=== PATIENT | male | born 1990 | race Two or more races ===

== ENCOUNTER 2018-10-20 23:16 | Emergency (ER) | payer OTHER ==
[~2018-10-20] VITALS: Ht 182.9 cm; Wt 82.0 kg
[2018-10-21] MEDS ORDERED: KETOROLAC 30MG/ML VIAL IV STA (03:53)
[2018-10-21] MEDS ORDERED: SODIUM CHLORIDE 0.9% 1,000 ML IV ONE (03:53)
[2018-10-21] MEDS ORDERED: DEXAMETHASONE 10 MG/ML VIAL IV ONE (04:00)
[2018-10-21] MEDS ORDERED: PENICILLIN G BENZATHINE 1,200,000 UNITS/2ML SYR IM ONE (04:00)
[2018-10-21 04:16] LABS: BASOPHILS % 0.9 % (0.0-2.0); EOSINOPHILS % 3.1 % (0.0-5.0); HEMATOCRIT. 41.3 % (42.0-52.0); HEMOGLOBIN. 12.8 g/dL (14.0-18.0); LYMPHOCYTES % 13.4 % (20.0-50.0); MEAN CORPUSCULAR HEMOGLOBIN 20.4 pg (28.0-32.0); MEAN CORPUSCULAR VOLUME 65.5 fL (80.0-94.0); MEAN PLATELET VOLUME 8.5 fl (7.4-10.4); MONOCYTES % 8.8 % (2.0-8.0); NEUTROPHILS % 73.8 % (40.0-76.0); PLATELET 193 x1000/uL (130-400); RED BLOOD CELL COUNT 6.31 mill/uL (4.7-6.1); RED CELL DISTRIBUTION WIDTH 16.2 % (11.6-14.6)
[2018-10-21 04:21] LABS: CHLORIDE 105 mEq/L (98-107)
[2018-10-21 04:30] LABS: PLATELET ESTIMATE NORMAL
[2018-10-21] MEDS ORDERED: AMPICILLIN SOD/SULBACTAM NA 3 G in SODIUM CHLORIDE 0.9% 100 ML IV ONE (06:00)
[2018-10-21] MEDS ORDERED: ONDANSETRON HCL 4MG/2ML INJ IV ONE (06:15)
[2018-10-21] MEDS ORDERED: MORPHINE SULFATE 4 MG/ML CPJ (NOT FOR IM USE) IV ONE (06:15)
[2018-10-21] MEDS ORDERED: IOHEXOL-300 100 ML BOTTLE ONE (06:33)
[2018-10-21] MEDS ORDERED: DIPHENHYDRAMINE 50MG/ML VIAL IV ONE (06:45)
[2018-10-21 09:23] VITALS: BP 117/74
== END 2018-10-21 09:36 | disposition short-term general hospital (02) ==
LOC: ER 23:16
DX: J39.0 Retropharyngeal and parapharyngeal abscess (principal); R94.5 Abnormal results of liver function studies; F17.210 Nicotine dependence, cigarettes, uncomplicated
CPT/HCPCS: 36415; 70491; 80053; 85025; 87070; 87430; 96365; 96372; 96375; 99285; J0295; J0561; J1100; J1200; J1885; J2270; J2405; J7030; J7050; Q9967; Z7610

== ENCOUNTER 2019-10-12 20:49 | Emergency (ER) | payer SELFPAY ==
[~2019-10-12] VITALS: Ht 185.4 cm; Wt 82.0 kg
[2019-10-12 20:58] VITALS: BP 161/83
[2019-10-12] MEDS ORDERED: HYDROCODONE/ACETAMINOPHEN 5/325MG TABLET PO ONE (21:15)
[2019-10-12] MEDS ORDERED: TETANUS, DIPHTHERIA, PERTUSSIS VAC/PF 0.5ML (>7YR OLD) IM ONE (22:45)
== END 2019-10-12 23:55 | disposition home or self-care (01) ==
LOC: ER 20:49
DX: S91.112A Laceration without foreign body of left great toe without damage to nail, initial encounter (principal); S90.812A Abrasion, left foot, initial encounter; I10 Essential (primary) hypertension; V87.8XXA Person injured in other specified noncollision transport accidents involving motor vehicle (traffic), initial encounter; Y93.89 Activity, other specified; Y92.488 Other paved roadways as the place of occurrence of the external cause
CPT/HCPCS: 12002; 73630; 90471; 90715; 99283

== ENCOUNTER 2021-07-26 02:37 | Emergency (ER) | payer SELFPAY ==
[~2021-07-26] VITALS: Ht 182.9 cm; Wt 82.0 kg
[2021-07-26] MEDS ORDERED: CEFAZOLIN 1000MG PREMIX 50 ML IV ONE (03:15)
[2021-07-26] MEDS ORDERED: MORPHINE SULFATE 2 MG/ML CPJ (NOT FOR IM USE) IV ONE (03:15)
[2021-07-26] MEDS ORDERED: OXYCODONE HCL/ACETAMINOPHEN 5/325MG TABLET PO ONE (07:15)
[2021-07-26] MEDS ORDERED: TOPUD PO (10:08)
[2021-07-26 10:09] VITALS: BP 125/89
== END 2021-07-26 10:20 | disposition left against medical advice (07) ==
LOC: ER 02:37
DX: S01.112A Laceration without foreign body of left eyelid and periocular area, initial encounter (principal); I10 Essential (primary) hypertension; F17.210 Nicotine dependence, cigarettes, uncomplicated; Z20.822 Contact with and (suspected) exposure to COVID-19; Y00.XXXA Assault by blunt object, initial encounter; Y93.89 Activity, other specified; Y92.89 Other specified places as the place of occurrence of the external cause
CPT/HCPCS: 70450; 70486; 87426; 96365; 99285; J0690